=== PATIENT | female | born 1950 | race Caucasian/White ===

== ENCOUNTER 2018-01-03 08:01 | Outpatient (CLI) | payer BC | END 2018-01-03 08:02 | disposition home or self-care (01) | LOC: BICMAMMO 08:01 | PROVIDERS: ATTEND Family Medicine | DX: Z12.31 Encounter for screening mammogram for malignant neoplasm of breast (principal) | CPT/HCPCS: 77063; 77067 ==

== ENCOUNTER 2018-03-04 14:56 | Outpatient (CLI) | payer BC | END 2018-03-04 14:57 | disposition home or self-care (01) | LOC: BICMAMMO 14:56 | PROVIDERS: ATTEND Family Medicine | DX: Z78.0 Asymptomatic menopausal state (principal); M81.0 Age-related osteoporosis without current pathological fracture; M85.88 Other specified disorders of bone density and structure, other site | CPT/HCPCS: 77080 ==

== ENCOUNTER 2018-07-22 09:26 | Outpatient (CLI) | payer BC | END 2018-07-22 09:27 | disposition home or self-care (01) | LOC: BICRAD 09:26 | PROVIDERS: ATTEND Family Medicine | DX: M25.561 Pain in right knee (principal); M25.562 Pain in left knee; M17.0 Bilateral primary osteoarthritis of knee ==

== ENCOUNTER 2018-11-20 06:11 | Outpatient (CLI) | payer BC ==
--- NOTE | 2018-11-20 14:16 | RAD ---
PA AND LATERAL VIEWS OF CHEST: Date: 11/20/18 HISTORY: Preoperative evaluation. FINDINGS: The heart size is normal. The aorta is tortuous. The lungs are expanded without focal areas of consol idation, pneumothoraces, or pleural effusions. There is mild scarring at the left lung base. No acute osseous abnormalities are seen. There are mild degenerative changes in the spine. IMPRESSION: No radiographic evidence of acute cardiopulmonary process. POS: OFF
[2018-11-20 14:31] LABS: #Basophils 0.1 thou/uL (0.0-0.2); #Eosinphils 0.2 thou/uL (0.0-0.7); #Lymphocytes 1.7 thou/uL (1.20-3.40); #Monocytes 0.6 thou/uL (0.11-0.59); #Neutrophils 3.9 thou/uL (1.40-6.50); %Eosinophils 2.9 % (0.0-10.0); %Lymphocytes 25.9 % (21.0-51.0); %Monocytes 9.4 % (0.0-10.0); %Neutrophils 60.8 % (42.0-75.0); Hemoglobin 14.5 g/dL (12.0-16.0); Mean Corpuscular HGB CONC 33.2 g/dL (32.0-36.0); Mean Corpuscular Hemoglobin 31.5 pg (27.0-31.0); Mean Corpuscular Volume 95.1 fL (78.0-98.0); Platelet Count 348 thou/uL (130-400); RBC Distribution Width 11.1 % (11.5-14.5); Red Blood Cell (RBC) Count 4.58 mill/uL (4.20-5.40); White Blood Cell (WBC) Count 6.5 thou/uL (4.8-10.8)
[2018-11-20 14:36] LABS: INR-International Normal Ratio 0.9; PTT 30.6 SEC (22.9-36.1); Prothrombin Time 12.3 SEC (12.0-14.7)
[2018-11-20 14:47] LABS: Anion Gap 12 mmol/L (10-20); BUN (Urea Nitrogen) 16 mg/dL (9.8-20.1); Calc. Creatinine Clearance 0 mL/min (70-130); Calcium 9.6 mg/dL (7.8-10.44); Carbon Dioxide 28 mmol/L (23-31); Chloride 101 mmol/L (98-107); Estimated GFR-MDRD 88; Glucose 89 mg/dL (80-115); Potassium 3.5 mmol/L (3.5-5.1); Sodium 137 mmol/L (136-145)
[2018-11-20 14:59] LABS: Bilirubin Negative (Negative); Blood, Urine Negative (Negative); Clarity CLEAR (Clear); Glucose, Urine (Dipstick) Negative (Negative); Leukocyte Moderate (Negative); Nitrite Negative (Negative); Protein, Urine (Dipstick) Negative (Neg-Trace); Specific Gravity, Urine 1.016 (1.002-1.036); Urobilinogen 0.2 mg/dL (0.2-1.0); pH, Urine 7.5 (5.0-9.0)
[2018-11-20 15:08] LABS: Bacteria/HPF None Seen HPF (None Seen); Hyaline Casts/LPF 0-3 HYALINE CAST LPF (0-3 Hyaline); Pathc Cast-AUWi Flag 0.14 (0-2.49); RBC/HPF 0-3 HPF (0-3); Squamous Epithelial None Seen HPF (0-3); WBC/HPF None Seen HPF (0-3)
== END 2018-11-20 06:12 | disposition home or self-care (01) ==
LOC: LABBT 06:11
PROVIDERS: ATTEND Orthopaedic Surgery
DX: Z01.818 Encounter for other preprocedural examination (principal); M17.12 Unilateral primary osteoarthritis, left knee
CPT/HCPCS: 71046; 80048; 81001; 85025; 85610; 85730; 87081; 93005; 93010

== ENCOUNTER 2018-11-20 12:30 | Inpatient (IN) | payer BC ==
[2018-12-02] MEDS ORDERED: Fentanyl 100 MCG/2 ML VIAL ONE ×3 (05:53→08:54)
[2018-12-02] MEDS ORDERED: Midazolam HCl 2 mg/2 ml Vial ONE (06:16)
[2018-12-02] MEDS ORDERED: CEFAZOLIN 2 GM/50 ML BAG ONE (06:23)
[2018-12-02] MEDS ORDERED: Sodium Chloride 0.9% 100 ML ONE (06:23)
[2018-12-02] MEDS ORDERED: Tranexamic Acid 1,000 MG/10 ML VIAL ONE (06:23)
[2018-12-02] MEDS ORDERED: HYDROcodone/Acetaminophen 10/325 mg Tablet PO PRN ×3 (06:51→06:52)
[2018-12-02] MEDS ORDERED: Acetaminophen 325 MG TAB PO PRN (06:51)
[2018-12-02] MEDS ORDERED: Fentanyl 100 MCG/2 ML VIAL SLOW IVP PRN ×2 (06:51→07:10)
[2018-12-02] MEDS ORDERED: Zolpidem Tartrate 5 MG TAB PO PRN ×2 (06:51→07:10)
[2018-12-02] MEDS ORDERED: Ondansetron PF 4 MG/2 ML Vial IVP PRN ×2 (06:51→07:10)
[2018-12-02] MEDS ORDERED: Promethazine HCl 25 MG/ML VIAL IM PRN ×3 (06:51→08:28)
[2018-12-02] MEDS ORDERED: diphenhydrAMINE 25 MG CAP PO PRN (06:51)
[2018-12-02] MEDS ORDERED: CEFAZOLIN/Water 2 GM/20 ML SYRINGE SLOW IVP SCH (07:00)
[2018-12-02] MEDS ORDERED: Ropivacaine HCl/PF 250 ML in Premix Bag 1 BAG NERVE BLCK SCH (07:10)
[2018-12-02] MEDS ORDERED: traMADol HCl 50 MG TAB PO PRN ×2 (07:10)
[2018-12-02] MEDS ORDERED: Ondansetron HCl/PF 4 MG/2 ML Vial IVP PRN (08:28)
[2018-12-02] MEDS ORDERED: Promethazine HCl 25 MG/ML VIAL SLOW IVP PRN (08:28)
[2018-12-02] MEDS ORDERED: TRAVOPROST OP SCH (09:00)
[2018-12-02] MEDS ORDERED: Alendronate Sodium 70 mg Tablet PO SCH (09:00)
[2018-12-02 09:49] VITALS: BMI 30.2
[2018-12-02] MEDS ORDERED: Bupivacaine 0.25% HCL 30 ML VIAL ONE (10:12)
[2018-12-02] MEDS ORDERED: Ropivacaine 0.5% HCl/PF (150 MG/30 ML VIAL) ONE (10:12)
[2018-12-02] MEDS: Sodium Chloride 0.9% 1,000 ML IV SCH ×3 (10:36→16:34)
[2018-12-02] MEDS: Hydrochlorothiazide 25 MG TAB PO SCH (10:37)
[2018-12-02] MEDS: Aspirin 81 mg Enteric Coated Tablet PO SCH ×2 (10:37→20:55)
[2018-12-02] MEDS: Polyethylene Glycol OPTH DROP 15 ML BOT EA EYE SCH (10:37)
--- NOTE | 2018-12-02 11:03 | RAD ---
LEFT KNEE FRONTAL AND LATERAL IMAGIN12/02/2018 HISTORY: Total knee replacement. FINDINGS: There is postoperative gas and air within the anterior-inferior left thigh and left knee joint. Ther e is postoperative change involving the posterior aspect of the patella. Total knee arthroplasty pre sent. No evidence for hardware failure, fracture, or dislocation. IMPRESSION: Radiographic evidence of recent left total knee arthroplasty. POS: [facility]
[2018-12-02] MEDS: Ketorolac Tromethamine 30 MG/ML VIAL IVP SCH ×3 (11:35→23:02)
[2018-12-02] MEDS: CEFAZOLIN 2 GM/50 ML-DEXTROSE 2 GM in Premix Bag 1 BAG IVPB SCH ×2 (13:02→20:57)
[2018-12-02] MEDS ORDERED: ePHEDrine/0.9% NaCl/PF SYRINGE 50 mg/10 ml ONE (13:09)
[2018-12-02] MEDS ORDERED: Ondansetron PF 4 MG/2 ML Vial ONE (13:09)
[2018-12-02] MEDS ORDERED: PROPOFOL 200 MG/20 ML VIAL ONE (13:09)
[2018-12-02] MEDS ORDERED: Dexamethasone 20 MG/5 ML VIAL ONE (13:09)
--- NOTE | 2018-12-02 13:09 | OP ---
DATE OF PROCEDURE: 12/02/2018 PREOPERATIVE DIAGNOSIS: Degenerative joint disease, left knee. POSTOPERATIVE DIAGNOSIS: Degenerative joint disease, left knee. PROCEDURE PERFORMED: Left total knee arthroplasty using Cory Triathlon 4 femur, 3 tibia, 9 mm CS X3 polyethylene, and a 29 patella. MANAGER LSW: Ino Galvez PA-C. BLOOD LOSS: Minimal. SPECIMEN: None. DRAINS: None. COMPLICATION: None. TOURNIQUET TIME: 46 minutes. DESCRIPTION OF PROCEDURE: After informed consent was obtained in the preoperative holding area, the patient was taken to the operative suite where general anesthesia was induced. Once adequate level of general anesthesia was obtained, the patient was positioned and a well-padded tourniquet was placed around the left proximal thigh. The left lower extremity was then prepped and draped in the usual sterile fashion. Prior to exsanguination, a time-out was called and all members of the surgical team agreed upon site, surgeon, and patient. The extremity was then exsanguinated and the tourniquet was raised. A midline longitudinal incision was then made directly over the patella extending 2 fingerbreadths above the superior pole of the patella and 2 fingerbreadths inferior to the inferior patellar pole of the patella. Deeper subcutaneous layers were dissected sharply and local bleeding was controlled with Bovie electrocautery. A quad tendon longitudinal split was then made sharply and a median parapatellar arthrotomy was carried out both sharp and with Bovie electrocautery, carried down to 1 fingerbreadth medial to the tibial tubercle. The knee was then placed into flexion and the patella was everted nicely, and a copious fat pad ectomy was performed allowing for greater exposure of the tibia. The computer-assisted distal femoral fiducial was then placed and pinned firmly, and the distal femoral cutting guide was pinned firmly into place. The oscillating saw was then used to remove the appropriate amount of bone. The 4-in-1 cutting block was then placed on the distal femur and the oscillating saw was used to remove the appropriate amount of bone off the anterior, posterior, and chamfer cuts. After completion of bone cuts, the anterior cruciate ligament was resected sharply and the posterior cruciate ligament retractor was placed and the tibia was subluxed for better exposure. Partial meniscectomies were carried out, and the tibial computer-assisted fiducial was pinned, and the cutting guide was placed. Oscillating saw was then used to remove the bone, with Hohmann retractors used to take care and protect the collateral ligaments. After the tibial resection was performed, a laminar field sales trainer was placed in between the freshened bone cuts. The knee placed at 90 degrees and further bilateral meniscectomies were carried out, and the curved osteotome and curettage were used to remove any excess bone spurs in the posterior compartment. The trial femoral component, tibial baseplate were placed with the appropriate polyethylene trial insert with an appropriate polyethylene spacer and patellar button. The knee was taken through full range of motion with flexion and extension from 0 to 90 degrees and patellar broach squarely in the trochlea without any squinting or subluxation noted. The knee was also stable to varus and valgus stressing at 0, 15, 45, and 90 degrees of flexion. The drawer was negative. All trial components were then removed and the keel punch was used to provide the appropriate defect in the tibia with a mallet. The freshened bone cuts were copiously irrigated with pulsatile lavage of about 1.5 L to remove all excess debris. The freshened bone cuts were then dried with suction and lap sponge. The knee was placed in flexion and retractors were placed to provide access to all bone cuts. Tobramycin-impregnated methyl methacrylate cement was then placed on the freshened bone cuts and implants which were malleted firmly into place. Curettage and Mascot elevators were used to remove any excess bone cement. The knee was placed into full extension and the patellar button was placed under compression, and the cement was allowed to cure. Once completed, the components were again taken through full range of motion and copious irrigation of the knee was carried out with another liter of normal saline. All components were inspected fully with full range of motion and varus and valgus stressing. There was no laxity noted and full extension was observed clinically. Primary closure was accomplished with #2 interrupted Vicryl stitch of the arthrotomy defect. This was oversewn with a #2 running Quill barbed stitch. The gravitational platelet system was then injected into the arthrotomy prior to closure. The subcutaneous layer was then closed with a running 0 barbed Monocryl stitch and skin closure accomplished with a running subcuticular 3-0 Monocryl barbed Quill stitch and augmented with cement on the skin. Tourniquet was lowered. Good spontaneous return of distal pulses was noted clinically and a sterile dressing was applied to the incision. The procedure was terminated without any complications. The patient was awakened in the operative suite, and the patient was taken to the recovery room in stable condition. Job ID: [id number]
[2018-12-02] MEDS ORDERED: Ketorolac Tromethamine 30 MG/ML VIAL IVP SCH (14:00)
[2018-12-02] MEDS ORDERED: Artificial Tear Sol 15 ML BOT EA EYE PRN (15:03)
[2018-12-02] MEDS ORDERED: Cepastat Lozenges 1 LOZ PO PRN (15:03)
[2018-12-02] MEDS ORDERED: Sodium Chloride 0.65% Nasal 44 ML BOT EA NARE PRN (15:03)
[2018-12-02] MEDS ORDERED: Diabetic Tussin 200 MG/10 ML UDCUP PO PRN (15:03)
[2018-12-02] MEDS ORDERED: Loperamide HCl 2 MG CAP PO PRN (15:03)
[2018-12-02] MEDS ORDERED: hydrALAZINE 20 MG/ML VIAL SLOW IVP PRN (15:03)
[2018-12-02] MEDS ORDERED: Eucerin (Mineral Oil/Petrolatum,White) 30 gm Jar TOP PRN (15:03)
--- NOTE | 2018-12-02 15:32 | PDOC.PN ---
- Subjective Encounter Start Date: 12/02/18 Encounter Start Time: 14:45 -: old records requested/rev Patient seen and examined. No new complaints. admitted for left total knee replacement consulted for medical management - Objective Resuscitation Status - Order Detail: 12/02/18 15:03 Resuscitation Status Routine Resuscitation Status: FULL: Full Resuscitation MAR Reviewed: Yes Vital Signs & Weight: Vital Signs (12 hours) Temp Pulse Resp BP Pulse Ox 12/02/18 12:00 98.0 F 80 16 121/65 98 12/02/18 09:30 97.5 F L 76 16 145/77 H 98 Weight Weight 165 lb Additional Labs: old medical record reviewed Radiology Reviewed by me: Yes (knee xray reviewed) Phys Exam - Physical Examination Constitutional: NAD HEENT: PERRLA, moist MMs, sclera anicteric Neck: no JVD, supple Respiratory: no wheezing, no rales, no rhonchi Cardiovascular: RRR, no significant murmur, no rub Gastrointestinal: soft, non-tender, no distention, positive bowel sounds Musculoskeletal: no edema, pulses present left knee with dressing, nerve block in place Neurological: non-focal, normal sensation, moves all 4 limbs Lymphatic: no nodes Psychiatric: normal affect, A&O x 3 Skin: no rash, normal turgor Dx/Plan (1) Status post total left knee replacement Code(s): Z96.652 - PRESENCE OF LEFT ARTIFICIAL KNEE JOINT Status: Acute (2) Anxiety and depression Code(s): F41.9 - ANXIETY DISORDER, UNSPECIFIED; F32.9 - MAJOR DEPRESSIVE DISORDER, SINGLE EPISODE, UNSPECIFIED Status: Chronic (3) Dyslipidemia Code(s): E78.5 - HYPERLIPIDEMIA, UNSPECIFIED Status: Chronic (4) Glaucoma Code(s): H40.9 - UNSPECIFIED GLAUCOMA Status: Chronic (5) Hypertension Code(s): I10 - ESSENTIAL (PRIMARY) HYPERTENSION Status: Chronic (6) Obesity (BMI 30.0-34.9) Code(s): E66.9 - OBESITY, UNSPECIFIED Status: Chronic (7) Osteoporosis Code(s): M81.0 - AGE-RELATED OSTEOPOROSIS W/O CURRENT PATHOLOGICAL FRACTURE Status: Chronic - Plan cont current plan of care, plan discussed w/ family, PT/OT * continue aspirin for DVT prophylaxis * nerve block as per anesthesia * PT/OT as per [facility] protocol treatment * home medication reconciled * medication reviewed as below * symptomatic treatment * code status addressed and she is full code * pain controlled * medically stable * discussed with family bedside * will follow.. Review of Systems - Review of Systems ENT: negative: Ear Pain, Ear Discharge, Nose Pain, Nose Discharge, Nose Congestion, Mouth Pain, Mouth Swelling, Throat Pain, Throat Swelling, Other Respiratory: negative: Cough, Dry, Shortness of Breath, Hemoptysis, SOB with Excertion, Pleuritic Pain, Sputum, Wheezing Cardiovascular: negative: chest pain, palpitations, orthopnea, paroxysmal nocturnal dyspnea, edema, light headedness, other Gastrointestinal: negative: Nausea, Vomiting, Abdominal Pain, Diarrhea, Constipation, Melena, Hematochezia, Other Genitourinary: negative: Dysuria, Frequency, Incontinence, Hematuria, Retention , Other Musculoskeletal: negative: Neck Pain, Shoulder Pain, Arm Pain, Back Pain, Hand Pain, Leg Pain, Foot Pain, Other Skin: negative: Rash, Lesions, Mitchell, Bruising, Other - Medications/Allergies Allergies/Adverse Reactions: Allergies Allergy/AdvReac Type Severity Reaction Status Date / Time No Known Allergies Allergy Verified 12/02/18 10:05 Medications: Current Medications Acetaminophen (Tylenol) 650 mg PO Q4H PRN PRN Reason: Headache/Fever or Pain Hydrocodone Bitart/Acetaminophen ([place] 10/325) 1 tab PO Q4H PRN PRN Reason: Pain (1-3) Hydrocodone Bitart/Acetaminophen ([place]e 10/325) 2 tab PO Q4H PRN PRN Reason: PAIN (4-6) Artificial Tears (Tears Renewed 15ml Bottle) 2 drop EA EYE PRN PRN PRN Reason: Dry Eyes Aspirin (Ecotrin) 81 mg PO BID [facility] Last Admin: 12/02/18 10:37 Dose: Not Given Diphenhydramine HCl (Benadryl) 25 mg PO Q6H PRN PRN Reason: Itching Famotidine (Pepcid) 20 mg PO BID [facility] Fentanyl (Sublimaze) 50 mcg SLOW IVP Q1H PRN PRN Reason: breakthrough pain Ferrous Gluconate (Fergon) 324 mg PO BID-[facility] Guaifenesin (Robitussin Sf) 200 mg PO Q4H PRN PRN Reason: Cough Hydralazine HCl (Apresoline) 10 mg SLOW IVP Q4H PRN PRN Reason: SBP > 180 and HR < 70 Hydrochlorothiazide (Hydrochlorothiazide) 25 mg PO DAILY [facility] Last Admin: 12/02/18 10:37 Dose: Not Given Sodium Chloride (Normal Saline 0.9%) 1,000 mls @ 100 mls/hr IV .Q10H [facility] Last Admin: 12/02/18 13:01 Dose: 1,000 mls Ropivacaine 250 ml/ Device 250 mls @ 10 mls/hr NERVE BLCK INF [facility] Cefazolin Sodium/Dextrose 2 gm (/ Device) 50 mls @ 100 mls/hr IVPB Q8HR [facility] Stop: 12/02/18 22:29 Last Admin: 12/02/18 13:02 Dose: 50 mls Iron/Minerals/Multivitamins (Theragran M) 1 tab PO DAILY [facility] Ketorolac Tromethamine (Toradol) 15 mg IVP Q6HR [facility] Stop: 12/04/18 06:01 Last Admin: 12/02/18 11:35 Dose: 15 mg Latanoprost (Xalatan 0.005% Ophth Soln) 1 drop EA EYE HS [facility] Loperamide HCl (Imodium) 2 mg PO PRN PRN PRN Reason: Diarrhea/Loose Stools Mineral Oil/White Petrolatum (Eucerin Cream) 0 gm TOP BIDPRN PRN PRN Reason: Dry Skin Ondansetron HCl (Zofran) 4 mg IVP Q6H PRN PRN Reason: Nausea/Vomiting Promethazine HCl (Phenergan) 12.5 mg IM Q4H PRN PRN Reason: Nausea Propylene Glycol (Systane Opth Drop 15ml Bot) 1 drop EA EYE DAILY [facility] Last Admin: 12/02/18 10:37 Dose: Not Given Senna/Docusate Sodium (Senokot S) 2 tab PO BID [facility] Sodium Chloride (Flush - Normal Saline) 10 ml IVF PRN PRN PRN Reason: Saline Flush Sodium Chloride ([place] Nasal [place] 0.65%) 0 ml EA NARE QIDPRN PRN PRN Reason: Nasal Congestion Throat Lozenges (Cepastat Lozenges) 1 celina PO Q2H PRN PRN Reason: Sore Throat Tramadol HCl (Ultram) 50 mg PO Q6H PRN PRN Reason: Mild Pain (1-3) Tramadol HCl (Ultram) 100 mg PO Q6H PRN PRN Reason: Moderate Pain 4-6 Venlafaxine HCl (Effexor) 75 mg PO DAILY [facility] Last Admin: 12/02/18 10:37 Dose: Not Given Zolpidem Tartrate (Ambien) 5 mg PO HSPRN PRN PRN Reason: Insomnia
[2018-12-02] MEDS: Famotidine 20 MG TAB PO SCH (20:55)
[2018-12-02] MEDS: Latanoprost 0.005% Ophth Soln 2.5 ml Bottle EA EYE SCH (20:56)
[2018-12-03] MEDS: HYDROcodone/Acetaminophen 10/325 mg Tablet PO PRN ×4 (00:25→21:44)
[2018-12-03] MEDS: Sodium Chloride 0.9% 1,000 ML IV SCH ×3 (02:55→21:47)
[2018-12-03] MEDS: Ketorolac Tromethamine 30 MG/ML VIAL IVP SCH ×3 (05:56→17:44)
[2018-12-03 08:10] LABS: Hemoglobin 11.2 g/dL (12.0-16.0); Mean Corpuscular HGB CONC 33.2 g/dL (32.0-36.0); Mean Corpuscular Hemoglobin 31.3 pg (27.0-31.0); Mean Corpuscular Volume 94.5 fL (78.0-98.0); Platelet Count 332 thou/uL (130-400); Red Blood Cell (RBC) Count 3.59 mill/uL (4.20-5.40); White Blood Cell (WBC) Count 8.4 thou/uL (4.8-10.8)
[2018-12-03] MEDS: Aspirin 81 mg Enteric Coated Tablet PO SCH ×2 (08:32→21:37)
[2018-12-03] MEDS: Famotidine 20 MG TAB PO SCH ×2 (08:32→21:37)
[2018-12-03] MEDS: Senokot S 8.6-50 MG TAB PO SCH ×2 (08:32→21:37)
[2018-12-03] MEDS: Multivitamin W/ Minerals 1 TAB PO SCH (08:32)
[2018-12-03] MEDS: Hydrochlorothiazide 25 MG TAB PO SCH (08:32)
[2018-12-03] MEDS: Ferrous Gluconate 324 MG TAB PO SCH ×2 (08:33→18:08)
[2018-12-03] MEDS: Polyethylene Glycol OPTH DROP 15 ML BOT EA EYE SCH (09:01)
--- NOTE | 2018-12-03 10:52 | PDOC.PN ---
- Subjective Encounter Start Date: 12/03/18 Encounter Start Time: 08:30 Patient seen and examined. No new complaints. No overnight events - Objective Resuscitation Status - Order Detail: 12/02/18 15:03 Resuscitation Status Routine Resuscitation Status: FULL: Full Resuscitation MAR Reviewed: Yes Vital Signs & Weight: Vital Signs (12 hours) Temp Pulse Resp BP Pulse Ox 12/03/18 08:00 98.1 F 79 20 145/81 H 97 12/03/18 04:35 98.9 F 86 22 H 135/75 99 12/03/18 00:19 98.2 F 75 20 113/67 97 Weight Weight 165 lb I&O: 12/02/18 12/03/18 12/04/18 06:59 06:59 06:59 Intake Total 2980 Output Total 2250 Balance 730 Result Diagrams: 12/03/18 07:40 Phys Exam - Physical Examination Constitutional: NAD HEENT: PERRLA, moist MMs, sclera anicteric Neck: no JVD, supple Respiratory: no wheezing, no rales, no rhonchi Cardiovascular: RRR, no significant murmur, no rub Gastrointestinal: soft, non-tender, no distention, positive bowel sounds Musculoskeletal: no edema, pulses present nerve block in place, Neurological: non-focal, normal sensation, moves all 4 limbs Lymphatic: no nodes Psychiatric: normal affect, A&O x 3 Skin: no rash, normal turgor Dx/Plan (1) Status post total left knee replacement Code(s): Z96.652 - PRESENCE OF LEFT ARTIFICIAL KNEE JOINT Status: Acute (2) Anxiety and depression Code(s): F41.9 - ANXIETY DISORDER, UNSPECIFIED; F32.9 - MAJOR DEPRESSIVE DISORDER, SINGLE EPISODE, UNSPECIFIED Status: Chronic (3) Dyslipidemia Code(s): E78.5 - HYPERLIPIDEMIA, UNSPECIFIED Status: Chronic (4) Glaucoma Code(s): H40.9 - UNSPECIFIED GLAUCOMA Status: Chronic (5) Hypertension Code(s): I10 - ESSENTIAL (PRIMARY) HYPERTENSION Status: Chronic (6) Obesity (BMI 30.0-34.9) Code(s): E66.9 - OBESITY, UNSPECIFIED Status: Chronic (7) Osteoporosis Code(s): M81.0 - AGE-RELATED OSTEOPOROSIS W/O CURRENT PATHOLOGICAL FRACTURE Status: Chronic (8) Anemia, normocytic normochromic Code(s): D64.9 - ANEMIA, UNSPECIFIED Status: Chronic - Plan cont current plan of care, plan discussed w/ family, PT/OT * continue aspirin for DVT prophylaxis * nerve block as per anesthesia * PT/OT as per [facility] protocol treatment * medication reviewed as below * symptomatic treatment * pain controlled * medically stable.. Review of Systems - Review of Systems ENT: negative: Ear Pain, Ear Discharge, Nose Pain, Nose Discharge, Nose Congestion, Mouth Pain, Mouth Swelling, Throat Pain, Throat Swelling, Other Respiratory: negative: Cough, Dry, Shortness of Breath, Hemoptysis, SOB with Excertion, Pleuritic Pain, Sputum, Wheezing Cardiovascular: negative: chest pain, palpitations, orthopnea, paroxysmal nocturnal dyspnea, edema, light headedness, other Gastrointestinal: negative: Nausea, Vomiting, Abdominal Pain, Diarrhea, Constipation, Melena, Hematochezia, Other Genitourinary: negative: Dysuria, Frequency, Incontinence, Hematuria, Retention , Other Musculoskeletal: negative: Neck Pain, Shoulder Pain, Arm Pain, Back Pain, Hand Pain, Leg Pain, Foot Pain, Other Skin: negative: Rash, Lesions, Mitchell, Bruising, Other - Medications/Allergies Allergies/Adverse Reactions: Allergies Allergy/AdvReac Type Severity Reaction Status Date / Time No Known Allergies Allergy Verified 12/02/18 10:05 Medications: Current Medications Acetaminophen (Tylenol) 650 mg PO Q4H PRN PRN Reason: Headache/Fever or Pain Hydrocodone Bitart/Acetaminophen ([place] 10/325) 1 tab PO Q4H PRN PRN Reason: Pain (1-3) Last Admin: 12/03/18 00:25 Dose: 1 tab Hydrocodone Bitart/Acetaminophen ([place] 10/325) 2 tab PO Q4H PRN PRN Reason: PAIN (4-6) Last Admin: 12/03/18 08:33 Dose: 2 tab Artificial Tears (Tears Renewed 15ml Bottle) 2 drop EA EYE PRN PRN PRN Reason: Dry Eyes Aspirin (Ecotrin) 81 mg PO BID [facility] Last Admin: 12/03/18 08:32 Dose: 81 mg Diphenhydramine HCl (Benadryl) 25 mg PO Q6H PRN PRN Reason: Itching Famotidine (Pepcid) 20 mg PO BID [facility] Last Admin: 12/03/18 08:32 Dose: 20 mg Fentanyl (Sublimaze) 50 mcg SLOW IVP Q1H PRN PRN Reason: breakthrough pain Ferrous Gluconate (Fergon) 324 mg PO BID[facility] Last Admin: 12/03/18 08:33 Dose: 324 mg Guaifenesin (Robitussin Sf) 200 mg PO Q4H PRN PRN Reason: Cough Hydralazine HCl (Apresoline) 10 mg SLOW IVP Q4H PRN PRN Reason: SBP > 180 and HR < 70 Hydrochlorothiazide (Hydrochlorothiazide) 25 mg PO DAILY [facility] Last Admin: 12/03/18 08:32 Dose: 25 mg Sodium Chloride (Normal Saline 0.9%) 1,000 mls @ 100 mls/hr IV .Q10H [facility] Last Admin: 12/03/18 02:55 Dose: Not Given Ropivacaine 250 ml/ Device 250 mls @ 10 mls/hr NERVE BLCK INF [facility] Iron/Minerals/Multivitamins (Theragran M) 1 tab PO DAILY [facility] Last Admin: 12/03/18 08:32 Dose: 1 tab Ketorolac Tromethamine (Toradol) 15 mg IVP Q6HR [facility] Stop: 12/04/18 06:01 Last Admin: 12/03/18 05:56 Dose: 15 mg Latanoprost (Xalatan 0.005% Ophth Soln) 1 drop EA EYE [facility] Last Admin: 12/02/18 20:56 Dose: Not Given Loperamide HCl (Imodium) 2 mg PO PRN PRN PRN Reason: Diarrhea/Loose Stools Mineral Oil/White Petrolatum (Eucerin Cream) 0 gm TOP BIDPRN PRN PRN Reason: Dry Skin Ondansetron HCl (Zofran) 4 mg IVP Q6H PRN PRN Reason: Nausea/Vomiting Promethazine HCl (Phenergan) 12.5 mg IM Q4H PRN PRN Reason: Nausea Propylene Glycol (Systane Opth Drop 15ml Bot) 1 drop EA EYE DAILY [facility] Last Admin: 12/03/18 09:01 Dose: Not Given Senna/Docusate Sodium (Senokot S) 2 tab PO BID [facility] Last Admin: 12/03/18 08:32 Dose: 2 tab Sodium Chloride (Flush - Normal Saline) 10 ml IVF PRN PRN PRN Reason: Saline Flush Sodium Chloride ([place] Nasal [place] 0.65%) 0 ml EA NARE QIDPRN PRN PRN Reason: Nasal Congestion Throat Lozenges (Cepastat Lozenges) 1 celina PO Q2H PRN PRN Reason: Sore Throat Tramadol HCl (Ultram) 50 mg PO Q6H PRN PRN Reason: Mild Pain (1-3) Tramadol HCl (Ultram) 100 mg PO Q6H PRN PRN Reason: Moderate Pain 4-6 Venlafaxine HCl (Effexor) 75 mg PO DAILY [facility] Last Admin: 12/03/18 09:01 Dose: 75 mg Zolpidem Tartrate (Ambien) 5 mg PO HSPRN PRN PRN Reason: Insomnia
[2018-12-03] MEDS: Latanoprost 0.005% Ophth Soln 2.5 ml Bottle EA EYE SCH (21:37)
[2018-12-04] MEDS: Ketorolac Tromethamine 30 MG/ML VIAL IVP SCH ×2 (05:25)
[2018-12-04 06:43] LABS: Mean Corpuscular HGB CONC 33.1 g/dL (32.0-36.0); Mean Corpuscular Hemoglobin 31.7 pg (27.0-31.0); Mean Corpuscular Volume 95.8 fL (78.0-98.0); Mean Platelet Volume 7.3 fL (7.4-10.4); Platelet Count 315 thou/uL (130-400); RBC Distribution Width 11.1 % (11.5-14.5); Red Blood Cell (RBC) Count 3.47 mill/uL (4.20-5.40); White Blood Cell (WBC) Count 6.5 thou/uL (4.8-10.8)
[2018-12-04] MEDS: HYDROcodone/Acetaminophen 10/325 mg Tablet PO PRN (07:58)
[2018-12-04] MEDS: Aspirin 81 mg Enteric Coated Tablet PO SCH (07:59)
[2018-12-04] MEDS: Senokot S 8.6-50 MG TAB PO SCH (07:59)
[2018-12-04] MEDS: Ferrous Gluconate 324 MG TAB PO SCH (07:59)
[2018-12-04] MEDS: Famotidine 20 MG TAB PO SCH (07:59)
[2018-12-04] MEDS: Hydrochlorothiazide 25 MG TAB PO SCH (08:00)
[2018-12-04] MEDS: Multivitamin W/ Minerals 1 TAB PO SCH (08:00)
[2018-12-04] MEDS: Polyethylene Glycol OPTH DROP 15 ML BOT EA EYE SCH (08:38)
[2018-12-04] MEDS: Sodium Chloride 0.9% 1,000 ML IV SCH (08:38)
--- NOTE | 2018-12-04 09:46 | PDOC.PN ---
- Subjective Encounter Start Date: 12/04/18 Encounter Start Time: 08:30 Patient seen and examined. No new complaints. No overnight events - Objective Resuscitation Status - Order Detail: 12/02/18 15:03 Resuscitation Status Routine Resuscitation Status: FULL: Full Resuscitation MAR Reviewed: Yes Vital Signs & Weight: Vital Signs (12 hours) Temp Pulse Resp BP Pulse Ox 12/04/18 08:00 96 12/04/18 07:20 98.2 F 83 18 119/62 12/04/18 04:00 98.2 F 79 18 121/76 96 12/04/18 01:14 98.2 F 76 18 125/77 93 L Weight Weight 165 lb I&O: 12/03/18 12/04/18 12/05/18 06:59 06:59 06:59 Intake Total 2980 600 Output Total 2250 Balance 730 600 Result Diagrams: 12/04/18 04:53 Phys Exam - Physical Examination Constitutional: NAD HEENT: PERRLA, moist MMs, sclera anicteric Neck: no JVD, supple Respiratory: no wheezing, no rales, no rhonchi, clear to auscultation bilateral Cardiovascular: RRR, no significant murmur, no rub Gastrointestinal: soft, non-tender, no distention, positive bowel sounds Musculoskeletal: no edema, pulses present Neurological: non-focal, normal sensation Lymphatic: no nodes Psychiatric: normal affect, A&O x 3 Skin: no rash, normal turgor Dx/Plan (1) Status post total left knee replacement Code(s): Z96.652 - PRESENCE OF LEFT ARTIFICIAL KNEE JOINT Status: Acute (2) Anxiety and depression Code(s): F41.9 - ANXIETY DISORDER, UNSPECIFIED; F32.9 - MAJOR DEPRESSIVE DISORDER, SINGLE EPISODE, UNSPECIFIED Status: Chronic (3) Dyslipidemia Code(s): E78.5 - HYPERLIPIDEMIA, UNSPECIFIED Status: Chronic (4) Glaucoma Code(s): H40.9 - UNSPECIFIED GLAUCOMA Status: Chronic (5) Hypertension Code(s): I10 - ESSENTIAL (PRIMARY) HYPERTENSION Status: Chronic (6) Obesity (BMI 30.0-34.9) Code(s): E66.9 - OBESITY, UNSPECIFIED Status: Chronic (7) Osteoporosis Code(s): M81.0 - AGE-RELATED OSTEOPOROSIS W/O CURRENT PATHOLOGICAL FRACTURE Status: Chronic - Plan cont current plan of care, PT/OT * medication reviewed as below * symptomatic treatment * medically stable * plan for discharge today * will sign off. Review of Systems - Review of Systems ENT: negative: Ear Pain, Ear Discharge, Nose Pain, Nose Discharge, Nose Congestion, Mouth Pain, Mouth Swelling, Throat Pain, Throat Swelling, Other Respiratory: negative: Cough, Dry, Shortness of Breath, Hemoptysis, SOB with Excertion, Pleuritic Pain, Sputum, Wheezing Cardiovascular: negative: chest pain, palpitations, orthopnea, paroxysmal nocturnal dyspnea, edema, light headedness, other Gastrointestinal: negative: Nausea, Vomiting, Abdominal Pain, Diarrhea, Constipation, Melena, Hematochezia, Other Genitourinary: negative: Dysuria, Frequency, Incontinence, Hematuria, Retention , Other Musculoskeletal: negative: Neck Pain, Shoulder Pain, Arm Pain, Back Pain, Hand Pain, Leg Pain, Foot Pain, Other Skin: negative: Rash, Lesions, Mitchell, Bruising, Other - Medications/Allergies Allergies/Adverse Reactions: Allergies Allergy/AdvReac Type Severity Reaction Status Date / Time No Known Allergies Allergy Verified 12/02/18 10:05 Medications: Current Medications Acetaminophen (Tylenol) 650 mg PO Q4H PRN PRN Reason: Headache/Fever or Pain Hydrocodone Bitart/Acetaminophen ([place] 10/325) 1 tab PO Q4H PRN PRN Reason: Pain (1-3) Last Admin: 12/03/18 21:44 Dose: 1 tab Hydrocodone Bitart/Acetaminophen ([place] 10/325) 2 tab PO Q4H PRN PRN Reason: PAIN (4-6) Last Admin: 12/04/18 07:58 Dose: 2 tab Artificial Tears (Tears Renewed 15ml Bottle) 2 drop EA EYE PRN PRN PRN Reason: Dry Eyes Aspirin (Ecotrin) 81 mg PO BID [facility] Last Admin: 12/04/18 07:59 Dose: 81 mg Diphenhydramine HCl (Benadryl) 25 mg PO Q6H PRN PRN Reason: Itching Famotidine (Pepcid) 20 mg PO BID [facility] Last Admin: 12/04/18 07:59 Dose: 20 mg Fentanyl (Sublimaze) 50 mcg SLOW IVP Q1H PRN PRN Reason: breakthrough pain Ferrous Gluconate (Fergon) 324 mg PO BID[facility] Last Admin: 12/04/18 07:59 Dose: 324 mg Guaifenesin (Robitussin Sf) 200 mg PO Q4H PRN PRN Reason: Cough Hydralazine HCl (Apresoline) 10 mg SLOW IVP Q4H PRN PRN Reason: SBP > 180 and HR < 70 Hydrochlorothiazide (Hydrochlorothiazide) 25 mg PO DAILY [facility] Last Admin: 12/04/18 08:00 Dose: 25 mg Sodium Chloride (Normal Saline 0.9%) 1,000 mls @ 100 mls/hr IV .Q10H [facility] Last Admin: 12/04/18 08:38 Dose: Not Given Ropivacaine 250 ml/ Device 250 mls @ 10 mls/hr NERVE BLCK INF [facility] Last Admin: 12/03/18 11:25 Dose: 250 mls Iron/Minerals/Multivitamins (Theragran M) 1 tab PO DAILY [facility] Last Admin: 12/04/18 08:00 Dose: 1 tab Latanoprost (Xalatan 0.005% Ophth Soln) 1 drop EA EYE HS [facility] Last Admin: 12/03/18 21:37 Dose: Not Given Loperamide HCl (Imodium) 2 mg PO PRN PRN PRN Reason: Diarrhea/Loose Stools Mineral Oil/White Petrolatum (Eucerin Cream) 0 gm TOP BIDPRN PRN PRN Reason: Dry Skin Ondansetron HCl (Zofran) 4 mg IVP Q6H PRN PRN Reason: Nausea/Vomiting Last Admin: 12/03/18 13:16 Dose: 4 mg Promethazine HCl (Phenergan) 12.5 mg IM Q4H PRN PRN Reason: Nausea Propylene Glycol (Systane Opth Drop 15ml Bot) 1 drop EA EYE DAILY [facility] Last Admin: 12/04/18 08:38 Dose: Not Given Senna/Docusate Sodium (Senokot S) 2 tab PO BID [facility] Last Admin: 12/04/18 07:59 Dose: 2 tab Sodium Chloride (Flush - Normal Saline) 10 ml IVF PRN PRN PRN Reason: Saline Flush Sodium Chloride (Babbie Nasal Rush 0.65%) 0 ml EA NARE QIDPRN PRN PRN Reason: Nasal Congestion Throat Lozenges (Cepastat Lozenges) 1 celina PO Q2H PRN PRN Reason: Sore Throat Tramadol HCl (Ultram) 50 mg PO Q6H PRN PRN Reason: Mild Pain (1-3) Tramadol HCl (Ultram) 100 mg PO Q6H PRN PRN Reason: Moderate Pain 4-6 Venlafaxine HCl (Effexor) 75 mg PO DAILY [facility] Last Admin: 12/04/18 08:00 Dose: 75 mg Zolpidem Tartrate (Ambien) 5 mg PO HSPRN PRN PRN Reason: Insomnia Last Admin: 12/03/18 21:37 Dose: 5 mg
--- NOTE | 2018-12-04 11:15 | DIS ---
DATE OF ADMISSION: 12/02/2018 DATE OF DISCHARGE: 12/04/2018 PRIMARY CARE PHYSICIAN: Dr. Sheri Herrera. DISCHARGE DISPOSITION: Home. PRIMARY DISCHARGE DIAGNOSIS: Left total knee replacement. SECONDARY DISCHARGE DIAGNOSES: 1. Normocytic normochromic anemia. 2. Anxiety. 3. Depression. 4. Dyslipidemia. 5. Glaucoma. 6. Hypertension. 7. Obesity with BMI 30. 8. Osteoporosis. 9. Osteoarthritis. PRIMARY PROCEDURE/OPERATION: Left total knee replacement by Dr. Hernandez. RADIOLOGICAL INVESTIGATION: Knee x-ray. SIGNIFICANT LABORATORY DATA: WBC 6.5, hemoglobin 11.0, platelet 315. DISCHARGE MEDICATIONS: 1. [place] 1 tablet q.6 hourly p.r.n. 2. Fosamax 70 mg every week. 3. Hydrochlorothiazide 25 mg daily. 4. Xalatan eyedrops each eye at bedtime. 5. Aleve 220 mg b.i.d. p.r.n. 6. MiraLAX 17 g p.o. daily. 7. Travatan ophthalmic drops daily. 8. Venlafaxine 75 mg daily. 9. Aspirin 81 mg p.o. b.i.d. CONTRAINDICATION: None. CODE STATUS: Full code. INPATIENT GRADER PATROL: Dr. Hernandez was primary while in the hospital, Sound Team was consulted for medical management. TEST RESULTS PENDING ON DISCHARGE: None. ALLERGIES: NO KNOWN DRUG ALLERGIES. DISCHARGE PLAN: Posthospital, the patient has appointment with Dr. Hernandez on December 24, 2018 at 8:30 a.m. She will follow up with primary care physician in one week. HOSPITAL COURSE: A 68-year-old female, who was electively admitted by Dr. Hernandez for left knee replacement for her osteoarthritis, who failed outpatient therapy. Surgery was done on December 02, 2018 by him without any complication and postoperatively, the patient was at [facility] at that point, Sound Team was consulted for medical comanagement. The patient's all medical problems remained stable. We continued all her home medication while in hospital as well as on discharge. She was given aspirin for DVT prophylaxis. She had no block on discharge. [place] was prescribed for her pain. She will continue her outpatient PT and OT. The patient will follow up with orthopedic physician as instructed. The patient was seen and examined at bedside today. She is doing fantastic. She is ready for discharge today by Primary Team and we will sign off. Please see my progress note from today for further detail. Job ID: [id number]
[2018-12-04 13:00] VITALS: BP 111/74; TEMP 97.7
== END 2018-12-04 14:10 | disposition home or self-care (01) | DRG 470 ==
LOC: SJJU 12-02 05:26 → EEVIPCON 12-02 12:30
PROVIDERS: ADMIT Orthopaedic Surgery; ATTEND Orthopaedic Surgery
PROC: 0SRD0J9 Replacement of Left Knee Joint with Synthetic Substitute, Cemented, Open Approach (ICD-10-PCS; principal; 2018-12-02)
DX: M17.12 Unilateral primary osteoarthritis, left knee (principal); D64.9 Anemia, unspecified; F41.9 Anxiety disorder, unspecified; F32.9 Major depressive disorder, single episode, unspecified; E78.5 Hyperlipidemia, unspecified; H40.9 Unspecified glaucoma; I10 Essential (primary) hypertension; M81.0 Age-related osteoporosis without current pathological fracture; E66.9 Obesity, unspecified; Z68.30 Body mass index [BMI] 30.0-30.9, adult
CPT/HCPCS: 36415; 85027; C1713; C1776; J1100; J1885; J2250; J2405; J2704; J2795; J3010; J3370; J7050; S0020

== ENCOUNTER 2019-01-26 14:10 | Outpatient (CLI) | payer BC ==
--- NOTE | 2019-01-29 08:58 | MMO ---
FILMS COMPARED: The present examination has been compared to prior imaging studies performed at [facility] on 06/11/2005 and 05/30/2007. MAMMOGRAM FINDINGS: There are scattered fibroglandular densities. There are no suspicious masses, calcifications or areas of architectural distortion. IMPRESSION: THERE IS NO MAMMOGRAPHIC EVIDENCE OF MALIGNANCY. A ROUTINE FOLLOW-UP MAMMOGRAM IN 1 YEAR IS RECOMMENDED. ACR BI-RADS Category 1 - Negative
== END 2019-01-26 14:11 | disposition home or self-care (01) ==
LOC: BICMAMMO 14:10
PROVIDERS: ATTEND Family Medicine
DX: Z12.31 Encounter for screening mammogram for malignant neoplasm of breast (principal)
CPT/HCPCS: 77063; 77067

== ENCOUNTER 2020-01-28 09:51 | Outpatient (CLI) | payer BC ==
--- NOTE | 2020-01-28 13:44 | MMO ---
Bilateral MAMMO Bilat Screen [facility]. CLINICAL HISTORY: Patient is 69 years old and is seen for screening. The patient has no family history of breast cancer. The patient has no personal history of cancer. VIEWS: The views performed were: bilateral craniocaudal with tomosynthesis and bilateral mediolateral oblique with tomosynthesis. FILMS COMPARED: The present examination has been compared to prior imaging studies performed at [facility] on 12/17/2016, 01/03/2018 and 01/26/2019. This study has been interpreted with the assistance of computer-aided detection. MAMMOGRAM FINDINGS: There are scattered fibroglandular densities. There are no suspicious masses, suspicious calcifications, or new areas of architectural distortion. IMPRESSION: THERE IS NO MAMMOGRAPHIC EVIDENCE OF MALIGNANCY. A ROUTINE FOLLOW-UP MAMMOGRAM IN 1 YEAR IS RECOMMENDED. THE RESULTS OF THIS EXAM WERE SENT TO THE PATIENT. ACR BI-RADS Category 1 - Negative MAMMOGRAPHY NOTE: 1. A negative mammogram report should not delay a biopsy if a dominant of clinically suspicious mass is present. 2. Approximately 10% to 15% of breast cancers are not detected by mammography. 3. Adenosis and dense breasts may obscure an underlying neoplasm. Reported by: MELLY MONTES MD Electonically Signed: [id number]
== END 2020-01-28 09:52 | disposition home or self-care (01) ==
LOC: BICMAMMO 09:51
PROVIDERS: ATTEND Family Medicine
DX: Z12.31 Encounter for screening mammogram for malignant neoplasm of breast (principal)
CPT/HCPCS: 77063; 77067

== ENCOUNTER 2021-04-20 09:52 | Outpatient (CLI) | payer BC, MEDICARE | END 2021-04-20 09:53 | disposition home or self-care (01) | LOC: BICMAMMO 09:52 | PROVIDERS: ATTEND Physician Assistant | DX: Z12.31 Encounter for screening mammogram for malignant neoplasm of breast (principal) | CPT/HCPCS: 77063; 77067 ==

== ENCOUNTER 2022-04-24 12:47 | Outpatient (CLI) | payer BC | END 2022-04-24 12:48 | disposition home or self-care (01) | LOC: BICMAMMO 12:47 | PROVIDERS: ATTEND Family Medicine | DX: Z12.31 Encounter for screening mammogram for malignant neoplasm of breast (principal) | CPT/HCPCS: 77063; 77067 ==

== ENCOUNTER 2022-06-07 07:37 | Outpatient (CLI) | payer BC, MEDICARE | END 2022-06-07 07:38 | disposition home or self-care (01) | LOC: BICMAMMO 07:37 | PROVIDERS: ATTEND Family Medicine | DX: Z13.820 Encounter for screening for osteoporosis (principal); Z78.0 Asymptomatic menopausal state; M81.0 Age-related osteoporosis without current pathological fracture; M85.851 Other specified disorders of bone density and structure, right thigh; M85.852 Other specified disorders of bone density and structure, left thigh | CPT/HCPCS: 77080 ==

== ENCOUNTER 2022-11-27 13:00 | Outpatient (CLI) | payer BC | END 2022-11-27 13:01 | disposition home or self-care (01) | LOC: CT 13:00 | PROVIDERS: ATTEND Family Medicine | DX: R51.9 Headache, unspecified (principal) | CPT/HCPCS: 70450 ==

== ENCOUNTER 2023-05-14 09:57 | Outpatient (CLI) | payer BC | END 2023-05-14 09:58 | disposition home or self-care (01) | LOC: BICMAMMO 09:57 | PROVIDERS: ATTEND Family Medicine | DX: Z12.31 Encounter for screening mammogram for malignant neoplasm of breast (principal) | CPT/HCPCS: 77063; 77067 ==

== ENCOUNTER 2024-05-15 10:52 | Outpatient (CLI) | payer BC | END 2024-05-15 10:53 | disposition home or self-care (01) | LOC: BICMAMMO 10:52 | PROVIDERS: ATTEND Family Medicine | DX: Z12.31 Encounter for screening mammogram for malignant neoplasm of breast (principal) | CPT/HCPCS: 77063; 77067 ==

== ENCOUNTER 2024-10-08 19:05 | Emergency (ER) | payer BC ==
[2024-10-08 20:37] LABS: #Basophils 0.04 10x3/uL (0.0-0.2); %Basophils 0.5 % (0.0-1.0); %Eosinophils 0.9 % (0.0-10.0); %Monocytes 6.1 % (0.0-10.0); Hematocrit 40.9 % (36.0-47.0); Mean Corpuscular HGB CONC 34.2 g/dL (32.0-36.0); Mean Corpuscular Hemoglobin 32.6 pg (27.0-31.0); Mean Corpuscular Volume 95.1 fL (78.0-98.0); Platelet Count 327 10x3/uL (130-400)
[2024-10-08 20:58] LABS: Acetaminophen Less than 10 mcg/mL (Less than 10); Alcohol 308.9 mg/dL (Less than 10); Salicylate Less than 8.0 mg/dL (Less than 8.0)
[2024-10-08 20:59] LABS: ALT (SGPT) 24 U/L (8-55); AST (SGOT) 44 U/L (5-34); Albumin 3.7 g/dL (3.4-4.8); Alkaline Phosphatase 49 U/L (40-110); Anion Gap 16 mmol/L (10-20); BUN (Urea Nitrogen) 13 mg/dL (9.8-20.1); Bilirubin, Total 0.2 mg/dL (0.2-1.2); Calc. Creatinine Clearance 0 mL/min (70-130); Calcium 8.9 mg/dL (7.8-10.44); Carbon Dioxide 21 mmol/L (23-31); Chloride 102 mmol/L (98-107); Estimated GFR 93; Globulin 2.4 g/dL (2.4-3.5); Glucose 121 mg/dL (83-110); Potassium 2.6 mmol/L (3.5-5.1); Protein, Total 6.1 g/dL (5.8-8.1); Sodium 136 mmol/L (136-145)
[2024-10-08 22:04] LABS: Amphetamine Not Detected (NotDetected); Barbiturates Screen Not Detected (NotDetected); Benzodiazepine Screen Not Detected (NotDetected); Cocaine Metabolite Screen Not Detected (NotDetected); Methadone Not Detected (NotDetected); Methamphetamine Not Detected (NotDetected); Opiate Screen Not Detected (NotDetected); Oxycodone Screen Not Detected (NotDetected); Phencyclidine (PCP) Not Detected (NotDetected); THC/Cannabinoid Screen Not Detected (NotDetected); Tricyclic Screen Not Detected (NotDetected)
== END 2024-10-08 23:41 | disposition home or self-care (01) ==
LOC: ERS 19:05
DX: F10.129 Alcohol abuse with intoxication, unspecified (principal); I10 Essential (primary) hypertension; Y90.8 Blood alcohol level of 240 mg/100 ml or more
CPT/HCPCS: 36415; 70450; 71045; 80053; 80306; 80307; 85025

== ENCOUNTER 2025-07-20 13:25 | Outpatient (CLI) | payer BC | END 2025-07-20 13:26 | disposition home or self-care (01) | LOC: BICRAD 13:25 | PROVIDERS: ATTEND Family Medicine | DX: M25.551 Pain in right hip (principal); S72.111A Displaced fracture of greater trochanter of right femur, initial encounter for closed fracture; W19.XXXA Unspecified fall, initial encounter ==

== ENCOUNTER 2025-07-20 16:57 | Emergency (ER) | payer BC | END 2025-07-20 19:17 | disposition home or self-care (01) | LOC: ERS 16:57 | DX: S72.111A Displaced fracture of greater trochanter of right femur, initial encounter for closed fracture (principal); I10 Essential (primary) hypertension; W01.0XXA Fall on same level from slipping, tripping and stumbling without subsequent striking against object, initial encounter; Z55.6 Problems related to health literacy; Z79.899 Other long term (current) drug therapy; W19.XXXA Unspecified fall, initial encounter | CPT/HCPCS: 99283 ==